=== PATIENT | female | born 1995 | race Two or more races ===

== ENCOUNTER 2024-09-19 16:43 | Emergency (ER) | payer MEDICAID, OTHER ==
[~2024-09-19] VITALS: Ht 157.5 cm; Wt 71.0 kg
--- NOTE | 2024-09-19 17:14 | ED.PDOC ---
History of Present Illness HPI Comments 29 year old female with no past medical history presents to the emergency department with a chief complaint of direct referral onset today (09/19/24). Patient states she was seen at OBGYN, Dr. Weber's office, was told she tested positive as Syphilis, was sent to ED for first dose of Penicillin. She is currently 14 weeks . No other symptoms or modifying factors present at this time. Denies urgency frequency dysuria or hematuria Denies abdominal pain/pelvic pain/nausea vomiting Denies fevers chills night sweats unintentional weight loss Denies vaginal discharge, foul odor Chief Complaint: Abnormal LAB's Time Seen by MD: 16:15 Reviewed Notes: Nurses Notes, Medications, Allergies Information Source: Patient Mode of Arrival: Ambulatory Severity: Moderate Timing: Hours Duration: Since onset Prehospital treatment: None Past Medical History PAST MEDICAL HISTORY: Denies Surgical History: Denies all surgeries RN REHAB History: No Pertinent RN REHAB History Family History Family History: Reviewed,noncontributory to illness, No family hx of Cancer, No family hx of DM, No family hx of Heart aaliyah, No family hx of HTN, No family hx ofKidney aaliyah, No family hx of Liver aaliyah, No family hx of Lung aaliyah, No family hx of Stroke Social History Smoker: Non-Smoker Alcohol: Denies ETOH Use Drugs: Denies Drug Use Lives In: Home All Other Systems: Reviewed and Negative (as per HPI) Physical Exam General Appearance: No Apparent Distress, Normal HEENT: Normal ENT Inspection, Pharynx Normal, TMs Normal Neck: Full Range of Motion, Non-Tender, Normal, Normal Inspection Respiratory: Chest Non-Tender, Lungs Clear, No Accessory Muscle Use, No Respiratory Distress, Normal Breath Sounds Cardiovascular: No Edema, No JVD, No Murmur, No Gallop, Normal Peripheral Pulses, Regular Rate/Rhythm Breast Exam: Deferred Gastrointestinal: No Organomegaly, Non Tender, No Pulsatile Mass, Normal Bowel Sounds, Soft Genitalia: Deferred Pelvic: Deferred Rectal: Deferred Extremities: No calf tenderness, Normal capillary refill, Normal inspection, Normal range of motion, Non-tender, No pedal edema Musculoskeletal : Apperance: Normal Neurologic: Alert, computer hardware engineer II-XII nml as Tested, No Motor Deficits, Normal Affect, Normal Mood, No Sensory Deficits Cerebellar Function: Normal Reflexes: Normal Skin: Dry, Normal Color, Warm Lymphatic: No Adenopathy Was a procedure done? Was a procedure done?: No X-Ray, Labs, Meds, VS Vital Signs Date Time Temp Pulse Resp B/P (MAP) Pulse Ox O2 Delivery O2 Flow Rate FiO2 09/19/24 17:00 98.5 97 16 108/65 (79) 98 98.5 X-Ray, Labs, Meds, VS Comment 29 year old female with no past medical history presents to the emergency department with a chief complaint of direct referral onset today (09/19/24). Patient arrives alert and oriented, ABC's intact, afebrile, vital signs stable, saturating well in room air Patient was given: Penicillin 2,400,00 units IM . Tolerated medications with no adverse reaction. Additional MDM Review of External, Non-ED records: External records reviewed. Discussion with independent historian (EMS, family) history obtained from the patient/parents (if applicable) at bedside Chronic conditions affecting care: None Social determinants of health affecting care: None Consideration of admission (observation or admission): I considered escalation of care to admission for this patient, however given the reassuring workup, the patient is safe for outpatient management. Time of 1ST Reevaluation: 16:45 Reevaluation 1ST: Improved Patient Education/Counseling: Diagnosis, Treatment Family Education/Counseling: No Family Present SEPSIS Sepsis Screen Date sepsis recognized/suspect: Sep 19, 2024 Time Sepsis recognized/suspect: 1699 Recent Procedure: No On Antibiotic Therapy: No Respiratory Rate >20: No Heart Rate >90: Yes Temp<36 C (96.8 F) or >38.3 C: No SBP <90 or MAP <65 mmHG: No New Acute Mental Status Change: No Is the patient on CPAP, BIPAP,: No Vital Signs Date Time Temp Pulse Resp B/P (MAP) Pulse Ox O2 Delivery O2 Flow Rate FiO2 09/19/24 17:00 98.5 97 16 108/65 (79) 98 98.5 Departure 1 Departure Time of Disposition: 17:32 Impression: Primary Impression: Syphilis Disposition: 01 HOME / SELF CARE / HOMELESS Condition: Stable Discharged With: Self Critical Care Note Critical Care Time?: No Stability Stability form required: No Heart Score Heart Score: Heart Score Response (Comments) Value History N/A 0 EKG N/A 0 Age N/A 0 Risk Factors N/A 0 Troponin N/A 0 Total 0 I personally scribed for NICKI THURSTON NP ([email or web address]) on 09/19/24 at 17:14. Electronically submitted by Isa Pedraza ([email or web address]). I personally scribed for NICKI THURSTON NP ([email or web address]) on 09/19/24 at 17:32. Electronically submitted by Isa Pedraza ([email or web address]). NICKI THURSTON NP Sep 19, 2024 17:14
[2024-09-19] MEDS: PENICILLIN G BENZ 1,200,000 UNITS/2 ML SYRG IM ONE (17:15)
[2024-09-19 18:25] VITALS: BP 127/77; PULSE 18; RESP 18; TEMP 98.5; O2SAT 97
== END 2024-09-19 18:46 | disposition home or self-care (01) ==
LOC: ER 16:50
DX: O98.111 Syphilis complicating pregnancy, first trimester (principal); Z3A.13 13 weeks gestation of pregnancy
CPT/HCPCS: 96372; 99283; J0561

== ENCOUNTER 2025-01-30 14:18 | Observation (INO) | payer MEDICAID ==
[~2025-01-30] VITALS: Ht 157.5 cm; Wt 63.5 kg
--- NOTE | 2025-01-30 15:17 | DVH ---
BIOPHYSICAL PROFILE HISTORY: Short Cervix TECHNIQUE: Multiple transabdominal real-time grayscale sonographic images through the gravid uterus of the fetus with duplex Doppler color flow and M-mode spectral analysis FINDINGS: BIOPHYSICAL PROFILE: breathing score: 2 movement score: 2 tone score: 2 Quantitative GRIFFIN score: 2 (GRIFFIN: 12.6 Cm.) Total score: 8/8 The cervix 1.8 cm Single live fetus in cephalic presentation. heart rate 125 beats per minute. Anterior Grade 2 placenta without previa or abruption Single live fetus at 33 weeks 0 days Biophysical profile score 8/8 corresponding to an MINDY of 03/20/2025 IMPRESSION: 1. Biophysical profile score: 8/8.
[2025-01-30] MEDS ORDERED: NIFE10CA52 PO (15:46)
[2025-01-30] MEDS ORDERED: PROG100S VA (15:46)
[2025-01-30] MEDS: NIFEdipine 10 MG CAP PO STA (15:57)
[2025-01-30] MEDS: BETAMETHASONE ACET (30mg/5ml) 5ml Vial 6mg/ml IM STA (15:58)
[2025-01-30] MEDS ORDERED: PROG200C21 PO (16:04)
--- NOTE | 2025-01-30 19:23 | DVHDS2 ---
Physician Discharge Progress N Final Diagnosis: PTL Operations or Procedures: Operations or Procedures S: 30yo IUP@33.0wks presents to OB triage from Dr. Weber's office for PTL. OB hx: PTD at 36wks, C/S O: VSS per RN NST reactive per RN Celestone first dose IM given Procardia 10mg PO given A: 30yo IUP@33.0wks PTL P: D/C home Rx sent for progesterone and procardia per Dr. Weber's order. FKC/PTL/preE precautions reviewed f/u tmrw for second celestone dose Dr. Weber consulted, agrees with POC. Other Interventions Other Interventions [place] [id number] Ph: [phone] DIAGNOSTIC IMAGING Diagnostic Imaging Report : [id number] Signed PATIENT: NIKOLE DOBSON ACCT: [id number] UNIT: [id number] : 1995 LOC: [facility] ROOM / BED: TRIAGE1 / A AGE / SEX: 30 / F ADM STATUS: ADM IN SERVICE ORDERING PHYSICIAN: CECY FREIRE CNM PROCEDURE(s): BPP - BIOPHYSICAL PROFILE REASON: Short Cervix ORDER NUMBER(s): [id number], ACCESSION NUMBER(s): [id number] BIOPHYSICAL PROFILE HISTORY: Short Cervix TECHNIQUE: Multiple transabdominal real-time grayscale sonographic images through the gravid uterus of the fetus with duplex Doppler color flow and M-mode spectral analysis FINDINGS: BIOPHYSICAL PROFILE: breathing score: 2 movement score: 2 tone score: 2 Quantitative GRIFFIN score: 2 (GRIFFIN: 12.6 Cm.) Total score: 8/8 The cervix 1.8 cm Single live fetus in cephalic presentation. heart rate 125 beats per minute. Anterior Grade 2 placenta without previa or abruption Single live fetus at 33 weeks 0 days Biophysical profile score 8/8 corresponding to an MINDY of 03/20/2025 IMPRESSION: 1. Biophysical profile score: 8/8. ATED BY: LAN TORIBIO Jr. DO DICTATED DATE/TIME: 01/30/251514 SIGNED BY: LAN TORIBIO Jr., SIGNED DATE/TIME: 01/30/251514 CC: Condition on Discharge: Stable Disposition: Home Discharge Instructions: Diet: Regular Activity: See Comment Activity comment: pelvic rest Medications: see med list Follow Up Care: Specialist: f/u on 01/31/25 for second celestone Discharge Statement: "Patient was advised to return to the ER or call 911 if any headaches, dizziness, shortness of breath, chest pain, abdominal pain, bleeding, fevers, or worsening of medical condition. Patient was counseled about treatment plan, medications, possible side effects, patientverbalized understanding. All questions were answered to the best of my ability. This discharge took greater then 30 minutes in planning, reviewing documentation, counseling the patient, and discussing with other team members." Visit Coding OBGYN Date of Service: Jan 30, 2025 Billing Provider: CECY FREIRE CNM POWER CHISEL OPERATOR Common Visit Codes: 02486-[id number] OBS CARE (HIGH) POWER CHISEL OPERATOR Procedure Codes: 15887-73- NON-STRESS TEST CECY FREIRE CNM Jan 30, 2025 19:23
[2025-01-31] MEDS ORDERED: PREN-96 PO (16:22)
== END 2025-01-30 16:25 | disposition home or self-care (01) ==
LOC: UNDOADMOB 14:18 → LDRP 14:18 → UNDODISOB 16:25
PROVIDERS: ADMIT Obstetrics & Gynecology; ATTEND Obstetrics & Gynecology
DX: O26.873 Cervical shortening, third trimester (principal); O60.03 Preterm labor without delivery, third trimester; Z3A.33 33 weeks gestation of pregnancy; Z98.890 Other specified postprocedural states
CPT/HCPCS: 36415; 59025; 76819; 81002; 86780; 94760; 96372; G0378; J0702

== ENCOUNTER 2025-01-31 06:32 | Observation (INO) | payer MEDICAID ==
[~2025-01-31] VITALS: Ht 162.6 cm; Wt 82.1 kg
[~2025-01-31 06:32] MED LIST: NIFE10CA52 PO; PROG200C21 PO
[2025-01-31] MEDS: BETAMETHASONE ACET (30mg/5ml) 5ml Vial 6mg/ml IM ONE (16:14)
[2025-01-31] MEDS ORDERED: PREN-96 PO (16:22)
--- NOTE | 2025-01-31 17:20 | DVHDS2 ---
Physician Discharge Progress N Final Diagnosis: second dose of betamethasone Operations or Procedures: Operations or Procedures 30yo IUP@33.1wks, taking progesterone/procardia second dose of betamethasone given NST reactive FKC/PTL/preE precautions reviewed Dr. Weber consulted, agrees with POC. Condition on Discharge: Stable Disposition: Home Discharge Instructions: Diet: Regular Activity: See Comment Activity comment: pelvic rest Medications: see med list Follow Up Care: Specialist: f/u in 1wk Discharge Statement: "Patient was advised to return to the ER or call 911 if any headaches, dizziness, shortness of breath, chest pain, abdominal pain, bleeding, fevers, or worsening of medical condition. Patient was counseled about treatment plan, medications, possible side effects, patientverbalized understanding. All questions were answered to the best of my ability. This discharge took greater then 30 minutes in planning, reviewing documentation, counseling the patient, and discussing with other team members." Visit Coding OBGYN Date of Service: Jan 31, 2025 Billing Provider: CECY FREIRE CNM SALES TEACHER Common Visit Codes: [id number] OBS CARE (HIGH) SALES TEACHER Procedure Codes: 28027-32- NON-STRESS TEST CECY FREIRE CNM Jan 31, 2025 17:20
== END 2025-01-31 16:34 | disposition home or self-care (01) ==
LOC: LDRP 15:12 → UNDOADMOB 15:12 → LDRP 15:18
PROVIDERS: ADMIT Obstetrics & Gynecology; ATTEND Obstetrics & Gynecology
DX: O60.03 Preterm labor without delivery, third trimester (principal); Z3A.33 33 weeks gestation of pregnancy; Z98.890 Other specified postprocedural states
CPT/HCPCS: 59025; 81002; 94760; 96372; G0378

== ENCOUNTER 2025-02-07 06:51 | Observation (INO) | payer MEDICAID ==
[~2025-02-07 06:51] MED LIST changes: +PREN-96 PO
--- NOTE | 2025-02-07 11:45 | DVHDS2 ---
Physician Discharge Progress N Final Diagnosis: ptl,previous cs 34wks Operations or Procedures: Operations or Procedures nst reactive reviwed,sono Condition on Discharge: Good Disposition: Home SNF Discharge Will this Physician continue t: No Discharge Instructions: Diet: Regular Activity: Light activity Medications: na Follow Up Care: Specialist: 1w Discharge Statement: "Patient was advised to return to the ER or call 911 if any headaches, dizziness, shortness of breath, chest pain, abdominal pain, bleeding, fevers, or worsening of medical condition. Patient was counseled about treatment plan, medications, possible side effects, patientverbalized understanding. All questions were answered to the best of my ability. This discharge took greater then 30 minutes in planning, reviewing documentation, counseling the patient, and discussing with other team members." Visit Coding OBGYN Date of Service: Feb 07, 2025 Billing Provider: JOHN DAVILA DO CAFETERIA ATTENDANT Common Visit Codes: [id number] OBS CARE (HIGH) CAFETERIA ATTENDANT Procedure Codes: 00579-70- NON-STRESS TEST JOHN DAVILA DO Feb 07, 2025 11:45
--- NOTE | 2025-02-07 11:57 | DVH ---
BIOPHYSICAL PROFILE HISTORY: Short cervix, PTL TECHNIQUE: Multiple transabdominal real-time grayscale sonographic images through the gravid uterus of the fetus with duplex Doppler color flow and M-mode spectral analysis FINDINGS: BIOPHYSICAL PROFILE: breathing score: 2 movement score: 2 tone score: 2 Quantitative GRIFFIN score: 2 (GRIFFIN: 13 Cm.) Total score: 8 Cervix appears shortened measuring 1.9 cm. Single live fetus in cephalic presentation. heart rate 138 beats per minute. Grade II anterior placenta without previa or abruption IMPRESSION: Biophysical profile score: 8 Cervix appears shortened measuring 1.9 cm.
== END 2025-02-07 12:00 | disposition home or self-care (01) ==
LOC: LDRP 10:40 → UNDOADMOB 10:40 → LDRP 10:52
PROVIDERS: ADMIT Obstetrics & Gynecology; ATTEND Obstetrics & Gynecology
DX: O60.03 Preterm labor without delivery, third trimester (principal); Z3A.34 34 weeks gestation of pregnancy; Z98.890 Other specified postprocedural states
CPT/HCPCS: 59025; 76819; 81002; 94760; A4649; G0378

== ENCOUNTER 2025-02-14 11:55 | Observation (INO) | payer MEDICAID ==
--- NOTE | 2025-02-14 13:13 | DVH ---
BIOPHYSICAL PROFILE HISTORY: Short cervix and hx of labor TECHNIQUE: Multiple transabdominal real-time grayscale sonographic images through the gravid uterus of the fetus with duplex Doppler color flow and M-mode spectral analysis FINDINGS: BIOPHYSICAL PROFILE: breathing score: 2 movement score: 2 tone score: 2 Quantitative GRIFFIN score: 2 (GRIFFIN: 15.8 Cm.) Total score: 8 The cervix is shortened and measures 1.7 cm with trace fluid. Single live fetus in cephalic presentation. heart rate 142 beats per minute. Grade 2 fundal placenta without previa or abruption IMPRESSION: The cervix is shortened and measures 1.7 cm with trace fluid.
[2025-02-14] MEDS ORDERED: NIFE10CA52 PO ×2 (13:40→13:42)
--- NOTE | 2025-02-14 14:51 | DVHDS2 ---
Physician Discharge Progress N Final Diagnosis: ptl,short cx 35wks Operations or Procedures: Operations or Procedures nst reactive reviwed,sono Condition on Discharge: Good Disposition: Home Discharge Instructions: Diet: Regular Activity: Bed rest Medications: na Follow Up Care: Specialist: 3d Discharge Statement: "Patient was advised to return to the ER or call 911 if any headaches, dizziness, shortness of breath, chest pain, abdominal pain, bleeding, fevers, or worsening of medical condition. Patient was counseled about treatment plan, medications, possible side effects, patientverbalized understanding. All questions were answered to the best of my ability. This discharge took greater then 30 minutes in planning, reviewing documentation, counseling the patient, and discussing with other team members." Visit Coding OBGYN Date of Service: Feb 14, 2025 Billing Provider: JOHN DAVILA DO OIL BURNER REPAIRER Common Visit Codes: [id number] OBS CARE (HIGH) OIL BURNER REPAIRER Procedure Codes: 03208-23- NON-STRESS TEST JOHN DAVILA DO Feb 14, 2025 14:51
== END 2025-02-14 13:56 | disposition home or self-care (01) ==
LOC: LDRP 11:55 → UNDOADMOB 11:55 → LDRP 12:06 → UNDODISOB 13:56
PROVIDERS: ADMIT Obstetrics & Gynecology; ATTEND Obstetrics & Gynecology
DX: O60.03 Preterm labor without delivery, third trimester (principal); O26.873 Cervical shortening, third trimester; Z3A.35 35 weeks gestation of pregnancy; Z98.890 Other specified postprocedural states
CPT/HCPCS: 59025; 76817; 76819; 81002; 94760; A4649; G0378

== ENCOUNTER 2025-02-17 03:38 | Observation (INO) | payer MEDICAID ==
--- NOTE | 2025-02-17 09:55 | DVH ---
EXAM: US BIOPHYSICAL PROFILE DATE OF SERVICE: 02/17/2025 09:20 AM ORDERING PHYSICIAN: DANIEL HEARD REASON FOR EXAM: Short cervix, PTL TECHNIQUE: Sonographic images were acquired of the gravid uterus. COMPARISON: US BIOPHYSICAL PROFILE on DOS: 02/14/25, US BIOPHYSICAL PROFILE on DOS: 02/07/25, US BIOPHYSICAL PROFILE on DOS: 01/30/25 FINDINGS: There is a single live intrauterine with a heart rate of 133 beats per minute. The placenta is located anteriorly with no evidence of previa or abruption. The amniotic fluid index is 11.7 cm with an MVP of 4.5 cm. The cervix is shortened, measuring 1.3 cm. There is mild funneling measuring up to 7 mm. There is normal breathing, movement, and tone. The biophysical profile score is 8/8. IMPRESSION: Shortened maternal cervix measuring 1.3 cm with mild funneling.
--- NOTE | 2025-02-17 10:01 | DVHDS2 ---
Physician Discharge Progress N Final Diagnosis: labor 35 wk, short cervical length Previous C/Section Secondary Diagnosis: NOT in labor Operations or Procedures: Operations or Procedures NST/BPP reactive, normal Condition on Discharge: Stable Disposition: Home Discharge Instructions: Diet: Regular Activity: Light activity Activity comment: Pelvic rest, PTL precautions Follow Up/Referral: 2-3 days w/ Dr Weber Medications: Refill Procardia and vaginal progesterone Follow Up Care: Discharge Statement: "Patient was advised to return to the ER or call 911 if any headaches, di zziness, shortness of breath, chest pain, abdominal pain, bleeding, fevers, or worsening of medical condition. Patient was counseled about treatment plan, medications, possible side effects, patientverbalized understanding. All questions were answered to the best of my ability. This discharge took greater then 30 minutes in planning, reviewing documentation, counseling the patient, and discussing with other team members." Visit Coding OBGYN Date of Service: Feb 17, 2025 Billing Provider: DANIEL HEARD DO CONE MARKER Common Visit Codes: 02482-SGO/OBS SAME DATE (HIGH) CONE MARKER Procedure Codes: 68294-92- NON-STRESS TEST DANIEL HEARD DO Feb 17, 2025 10:01
== END 2025-02-17 10:15 | disposition home or self-care (01) ==
LOC: LDRP 09:02
PROVIDERS: ADMIT Obstetrics & Gynecology; ATTEND Obstetrics & Gynecology
DX: O60.03 Preterm labor without delivery, third trimester (principal); Z3A.35 35 weeks gestation of pregnancy; Z98.890 Other specified postprocedural states
CPT/HCPCS: 59025; 76817; 76819; 81002; 94760; A4649; G0378

== ENCOUNTER 2025-02-20 14:50 | Observation (INO) | payer MEDICAID ==
[~2025-02-20] VITALS: Ht 157.5 cm; Wt 79.4 kg
--- NOTE | 2025-02-20 15:53 | DVH ---
BIOPHYSICAL PROFILE HISTORY: short cervix TECHNIQUE: Multiple transabdominal real-time grayscale sonographic images through the gravid uterus of the fetus with duplex Doppler color flow and M-mode spectral analysis FINDINGS: BIOPHYSICAL PROFILE: breathing score: 2 movement score: 2 tone score: 2 Quantitative GRIFFIN score: 2 (GRIFFIN: 10 Cm.) maximum vertical pocket of 5 cm Total score: 8/8 Cervical length of 1.9 cm. Redemonstration of 7 mm mild funneling. Single live fetus in cephalic presentation. heart rate 137 beats per minute. Grade 2 anterior placenta without previa or abruption IMPRESSION: Biophysical profile score: 8 Cervical length of 1.9 cm with mild funneling.
[2025-02-20] MEDS: TERBUTALINE SULFATE 1 MG/ML 1ML VIAL SC SCH (16:42)
--- NOTE | 2025-02-20 22:03 | DVHDS2 ---
Physician Discharge Progress N Final Diagnosis: testing for PTL/short cervix Operations or Procedures: Operations or Procedures 30yo iup@36+wks, pt denies feeling UCs, takes procardia 10mg PO Q4hrs NST reactive toco: UCs present initially, none after 1 dose of terbutaline (per dr. pérez order) VSS FKC/PTL/PreE precautions reviewed Dr. garcia consulted, agrees with poc. Other Interventions Other Interventions [place] [address] Ph: [phone] DIAGNOSTIC IMAGING Diagnostic Imaging Report : [id number] Signed PATIENT: NIKOLE DOBSON ACCT: [id number] UNIT: [id number] : 1995 LOC: [facility] ROOM / BED: [facility] / A AGE / SEX: 30 / F ADM STATUS: ADM IN SERVICE 1455 ORDERING PHYSICIAN: CECY FREIRE CNM PROCEDURE(s): BPP - BIOPHYSICAL PROFILE REASON: short cervix ORDER NUMBER(s): [id number], ACCESSION NUMBER(s): [id number] BIOPHYSICAL PROFILE HISTORY: short cervix TECHNIQUE: Multiple transabdominal real-time grayscale sonographic images through the gravid uterus of the fetus with duplex Doppler color flow and M-mode spectral analysis FINDINGS: BIOPHYSICAL PROFILE: breathing score: 2 movement score: 2 tone score: 2 Quantitative GRIFFIN score: 2 (GRIFFIN: 10 Cm.) maximum vertical pocket of 5 cm Total score: 8/8 Cervical length of 1.9 cm. Redemonstration of 7 mm mild funneling. Single live fetus in cephalic presentation. heart rate 137 beats per minute. Grade 2 anterior placenta without previa or abruption IMPRESSION: Biophysical profile score: 8 Cervical length of 1.9 cm with mild funneling. ATED BY: ARMIDA PEDRAZA DO DICTATED DATE/TIME: 02/20/25 155 SIGNED BY: ARMIDA PEDRAZA DO SIGNED DATE/TIME: 02/20/25 155 CC: Condition on Discharge: Stable Disposition: Home Discharge Instructions: Diet: Regular Activity: See Comment Activity comment: pelvic rest Medications: see med list Follow Up Care: Specialist: f/u in 1wk Discharge Statement: "Patient was advised to return to the ER or call 911 if any headaches, dizziness, shortness of breath, chest pain, abdominal pain, bleeding, fevers, or worsening of medical condition. Patient was counseled about treatment plan, medications, possible side effects, patientverbalized understanding. All questions were answered to the best of my ability. This discharge took greater then 30 minutes in planning, reviewing documentation, counseling the patient, and discussing with other team members." Visit Coding OBGYN Date of Service: Feb 20, 2025 Billing Provider: CECY FREIRE CNM HYDROMETEOROLOGICAL TECHNICIAN Common Visit Codes: [id number] OBS CARE (HIGH) HYDROMETEOROLOGICAL TECHNICIAN Procedure Codes: 83579-57- NON-STRESS TEST CECY FREIRE CNM Feb 20, 2025 22:03
== END 2025-02-20 17:08 | disposition home or self-care (01) ==
LOC: UNDOADMOB 14:50 → LDRP 14:50
PROVIDERS: ADMIT Obstetrics & Gynecology; ATTEND Obstetrics & Gynecology
DX: O26.873 Cervical shortening, third trimester (principal); O60.03 Preterm labor without delivery, third trimester; Z3A.36 36 weeks gestation of pregnancy; Z98.890 Other specified postprocedural states
CPT/HCPCS: 59025; 76817; 76819; 81002; 94760; A4649; G0378; J3105

== ENCOUNTER 2025-02-26 05:44 | Observation (INO) | payer MEDICAID ==
--- NOTE | 2025-02-26 10:20 | DVH ---
BIOPHYSICAL PROFILE HISTORY: short cervix Comparison Study: US BIOPHYSICAL PROFILE on DOS: 02/20/25, US BIOPHYSICAL PROFILE on DOS: 02/17/25, US BIOPHYSICAL PROFILE on DOS: 02/14/25, US BIOPHYSICAL PROFILE on DOS: 02/07/25, US BIOPHYSICAL PROFILE on DOS: 01/30/25 TECHNIQUE: Multiple real-time grayscale sonographic images through the gravid uterus of the fetus with duplex Doppler color flow and M-mode spectral analysis FINDINGS: BIOPHYSICAL PROFILE: breathing score: 2 movement score: 2 tone score: 2 Quantitative GRIFFIN score: 2 (GRIFFIN: 10.7 Cm.) Total score: 8 The cervix measures 1.5 cm, previously 1.9 cm. Single live fetus in cephalic presentation. heart rate 127 beats per minute. Grade 3, anterior placenta without previa or abruption IMPRESSION: Biophysical profile score: 8
--- NOTE | 2025-02-26 11:17 | DVHDS2 ---
Discharge Summary Date of Admission Feb 26, 2025 at 09:05 Date of Discharge: Feb 26, 2025 Admitting Diagnosis Short cervix here for NST BPP rule out labor and/or shortening of cervix. Wounds: None Brief Hx & Hospital Course: Patient is here for NST BPP reassuring no suit significant change in her short cervix length Consults/Reason for consult None Operations or Procedures NST BPP performed reassuring Condition at Discharge: Good Final Diagnosis/Problems List 36-6/7 weeks history of short cervix reassuring heart tones BPP Discharge Disposition: Home Discharge Instruct/Medications Diet: Regular Activity: Light activity Activity comment: Kick counts labor precautions Follow Up/Referral: As scheduled weekly NST BPP or PRN Medications: Resume home meds Scheduled Nifedipine (Procardia Capsule), 10 MG PO Q6HR Nifedipine (Procardia Capsule), 10 MG PO Q4HR, (Reported) Vit W/ Ferrous Fumara ( One Daily), 1 TAB PO DAILY, (Reported) Progesterone Micronized (Progesterone), 200 MG PO HS Miscellaneous Medications Nifedipine (Procardia Capsule), 10 MG PO, (Reported) Discharge Statement: "Patient was advised to return to the ER or call 911 if any headaches, dizziness, shortness of breath, chest pain, abdominal pain, bleeding, fevers, or worsening of medical condition. Patient was counseled about treatment plan, medications, possible side effects, patientverbalized understanding. All questions were answered to the best of my ability. This discharge took greater then 30 minutes in planning, reviewing documentation, counseling the patient, and discussing with other team members." ASSESSMENT ASSESSMENT Assessment Visit Coding OBGYN Date of Service: Feb 26, 2025 Billing Provider: ROSA SUERO DO MANAGER COMMODITIES Common Visit Codes: [id number] INP/OBS CARE(HIGH), 25101-VRS/OBS SAME DATE (LOW), 70741-SGV/OBS SAME DATE (MOD) MANAGER COMMODITIES Procedure Codes: 30064-66- NON-STRESS TEST ROSA SUERO DO Feb 26, 2025 11:17
== END 2025-02-26 10:33 | disposition home or self-care (01) ==
LOC: LDRP 09:05 → UNDOADMOB 09:05 → LDRP 09:11 → UNDODISOB 10:33
PROVIDERS: ADMIT Obstetrics & Gynecology; ATTEND Obstetrics & Gynecology
DX: O26.873 Cervical shortening, third trimester (principal); Z3A.36 36 weeks gestation of pregnancy; Z98.890 Other specified postprocedural states
CPT/HCPCS: 59025; 76817; 76819; 81002; 94760; A4649; G0378

== ENCOUNTER 2025-03-01 08:58 | Inpatient (IN) | payer MEDICAID ==
[2025-03-01] VITALS (11 sets, daily range): BP systolic 105–132; BP diastolic 60–76; PULSE 72–91; RESP 16–19; TEMP 97.5–98.1; O2SAT 96–98
[~2025-03-01] VITALS: Ht 157.5 cm; Wt 85.3 kg
--- NOTE | 2025-03-01 10:13 | DVH ---
BIOPHYSICAL PROFILE HISTORY: short cervix, repeat Comparison Study: US BIOPHYSICAL PROFILE on DOS: 02/26/25, US BIOPHYSICAL PROFILE on DOS: 02/20/25, US BIOPHYSICAL PROFILE on DOS: 02/17/25, US BIOPHYSICAL PROFILE on DOS: 02/14/25, US BIOPHYSICAL PROFILE on DOS: 02/07/25 TECHNIQUE: Multiple real-time grayscale sonographic images through the gravid uterus of the fetus with duplex doppler color flow and M-mode spectral analysis FINDINGS: BIOPHYSICAL PROFILE: breathing score: 2 movement score: 2 tone score: 2 Quantitative GRIFFIN score: 2 (GRIFFIN: 11.4 cm.) Total score: 8 The cervix 0.7 cm Single live fetus in cephalic presentation. heart rate 138 beats per minute. Anterior placenta without previa or abruption Biophysical profile score 8 corresponding to an MINDY of 03/20/25 IMPRESSION: 1. Biophysical profile score: 8
[2025-03-01] MEDS: LACTATED RINGER'S 1,000 ML IV ONE (10:15)
[2025-03-01] MEDS ORDERED: ceFAZolin 1GM/50ML 50 ML IV ONE (10:15)
[2025-03-01] MEDS: SODIUM CITR/CITRIC ACID ORAL SOLN 30 ML PO ONE (10:15)
--- NOTE | 2025-03-01 10:53 | DVHHP ---
ADMIT DATE: 03/01/2025 CHIEF COMPLAINT: Labor, desires repeat section. HISTORY OF PRESENT ILLNESS: The patient is a 30-year-old 2, para 1, with EDC 03/20. Estimated gestational age of 37+ weeks, admitted for labor. The patient started with labor. She received Celestone and progesterone, and she has been on Procardia. The patient had previous section x 1. Her cervix has been shortened from 3 to 1.8 and currently today is 0.4 cm with contractions. Subsequently, the patient will be taken for repeat section. PAST MEDICAL HISTORY: None. PAST SURGICAL HISTORY: . SOCIAL HISTORY: None. FAMILY HISTORY: None. OBSTETRIC AND GYNECOLOGIC HISTORY: One section. REVIEW OF SYSTEMS: Consistent with HPI. PHYSICAL EXAMINATION: VITAL SIGNS: Stable, afebrile. HEENT: Within normal limits. CARDIOVASCULAR: Regular rate and rhythm. LUNGS: Clear to auscultation. BREASTS: Symmetrical, no masses. ABDOMEN: Gravid. Positive heart. PELVIC: Cervix essentially nonexistent, open 1 cm. EXTREMITIES: No clubbing, cyanosis, or edema. IMPRESSION: * Intrauterine at 37+ weeks with labor, in early labor. * Desire to repeat section. PLAN: Repeat section. Informed consent obtained. Risks, complications of surgery including infection, bleeding, hematoma formation, injury to bowel, bladder, surrounding organs, possibility of DVT, pulmonary embolism, risk of anesthesia discussed with the patient. Options reviewed. All questions answered. The patient fully understands. She wishes to proceed with planned procedure. DO CAMILA Chaidez/IVA TID: [id number] RECEIPT: [id number]
[2025-03-01 11:01] LABS: Hematocrit 38.2 % (36.0-46.0); Hemoglobin 13.2 g/dL (12.2-16.2); Mean Corpuscular Hemoglobin 29.8 pg (28.0-32.0); Mean Corpuscular Volume 86.5 fL (80.0-100.0); Nucleated Red Blood Cells % 0.1 %
[2025-03-01 11:01] LABS: Urine Protein, UAD Negative (Negative)
[2025-03-01 11:11] LABS: INR 0.89 (0.9-1.15); Partial Thromboplastin Time 25.1 SEC (24.5-34.5); Prothrombin Time 9.5 sec (9.3-11.8)
[2025-03-01 11:15] LABS: Amphetamine Screen, Urine Neg (NEGATIVE); Barbiturate Scree,Urine Neg (NEGATIVE); Benzodiazephine Screen, Urine Neg (NEGATIVE); Cannabinoid Screen, Urine Neg (NEGATIVE); Cocaine Screen, Urine Neg (NEGATIVE); Opiate Scree,Urine Neg (NEGATIVE); Phencyclidine Screen, Urine Neg (NEGATIVE)
[2025-03-01 11:17] LABS: Albumin 3.9 g/dL (3.2-4.8); Anion Gap 9 (5-15); BUN/Creatinine Ratio 13.7 (10.0-20.0); Calcium 9.4 mg/dL (8.7-10.4); Carbon Dioxide 24 mmol/L (20-31); Chloride 105 mmol/L (98-107); Potassium 3.9 mmol/L (3.5-5.1); Sodium 138 mmol/L (136-145); Total Protein 6.8 g/dL (5.7-8.2)
[2025-03-01 11:18] LABS: Alanine Aminotransferase < 9 U/L (7-40); Alkaline Phosphatase 194 U/L (46-116); Bilirubin, Total 0.4 mg/dL (0.2-1.0); Blood Urea Nitrogen 7 mg/dL (9-23); Glucose 72 mg/dL (74-106)
[2025-03-01] MEDS ORDERED: ONDANSETRON HCL 4 MG/2 ML VIAL ONE (12:33)
[2025-03-01] MEDS ORDERED: MORPHINE SULF PF 5 MG/10 ML VIAL ONE (12:39)
[2025-03-01] MEDS ORDERED: fentaNYL CITRATE 100 MCG/2 ML VL ONE (12:39)
[2025-03-01] MEDS: ceFAZolin 2 GM/D5W50ml 50 ML IV ONE (13:00)
[2025-03-01] MEDS ORDERED: BUPIVACAINE/DEXTROSE MPF 0.75% 2 ML AMP IT ONE (13:01)
--- NOTE | 2025-03-01 13:46 | DVHOP2 ---
Operative Report DATE OF OPERATION:03/01/25 PREOPERATIVE DIAGNOSES: [IUP AT 37+WKS IN LABOR,PREVIOUS CSX1,DESIRES RCS] POSTOPERATIVE DIAGNOSES: [SAME] OPERATION PERFORMED: Repeat Section FINDINGS: [B] infant. Apgars of [8] and [9. Weight [GOOD] crying tone. [CLEAr] amniotic fluid. Placenta and three-vessel were intact. Normal tubes, ovaries, and uterus. Moderate scar tissue. SURGEON: Mallorie Weber D.O. [employer] FARM HAND: solar thermal technician, jagjit. ANESTHESIOLOGIST: Fern ngo ANESTHESIA: [Duramorph spinal, regional]. COMPLICATIONS: [none]. ESTIMATED BLOOD LOSS: [500] mL. BLOOD PRODUCTS USED: [none]. PROCEDURE IN DETAIL: The patient was taken to the operating room, placed in sitting position, and spinal was placed without difficulty. She was then prepped and draped in a sterile fashion. A low Pfannenstiel incision was made scapel. At this point, it was carried down through the rectus fascia, nicked in the midline, and carried laterally. The rectus muscles were in the midline. Peritoneum was identified and entered with sharp dissection. Vesicouterine peritoneum was taken off the lower uterine segment. A lower uterine transverse incision was made with a scalpel down the chorionic membranes, ruptured with hemostat. was in vertex position. One hand was placed in the lower uterine segment. Head was essentially delivered spontaneously. Nose and mouth were bulb suctioned. Shoulders and torso were delivered without difficulty. Again, pharynx, nose, and mouth were re-suctioned with vigorous crying tone. Cord was cut. The infant was handed off to the awaiting Respiratory. At this point, umbilical blood sample was taken. Placenta was removed. Uterus was exteriorized, cleared off all clots and debris, irrigated, and closed with a double layer of 0-Vicryl. The vesicouterine peritoneum was incorporated into this closure. We had complete hemostasis. EBL was [500] mL. The instrument, lap, and sponge count was correct x1. The uterus was placed back into the peritoneum. The peritoneal cavity was re-inspected and the lower uterine incision with good hemostasis. We closed the peritoneum with running continuous of 2-0 Vicryl. The Rectus Fascia was closed with 0-PDS, running continuous, looped-0. The skin was closed undermined, irrigated, and close with karen. CONDITION: The patient's and the infant's condition is stable and but guarded. Visit Coding OBGYN Date of Service: Mar 01, 2025 Billing Provider: MALLORIE WEBER DO SPECIAL PROCEDURES TECHNOLOGIST Common Visit Codes: [id number] OBS CARE (HIGH) SPECIAL PROCEDURES TECHNOLOGIST Procedure Codes: [id number] DELIVERY ONLY MALLORIE WEBER DO Mar 01, 2025 13:46
--- NOTE | 2025-03-01 13:47 | POSTOP ---
Post-Operative Note Post-Operative Note Preop Diagnosis iup at 37+wks in labor ,desires rcs Postop Diagnosis: same Operation performed rcs Specimen baby boy,apgars 8-9 Anesthesia: Regional Anesthesiologist: misael Blood Loss(fluid mgmt) 500ml Surgeon John Weber Disaster Recovery Specialist raysa Implant na Complications & Mgmt none Date 03/01/25 Time 13:46 Visit Coding OBGYN Date of Service: Mar 01, 2025 Billing Provider: JOHN WEBER DO BILINGUAL TEACHER Common Visit Codes: [id number] OBS CARE (HIGH) BILINGUAL TEACHER Procedure Codes: [id number] DELIVERY ONLY JOHN WEBER DO Mar 01, 2025 13:47
[2025-03-01] MEDS ORDERED: HYDROmorphone HCL 2 MG/ML VL/or syr IV PRN ×2 (14:30)
[2025-03-01] MEDS ORDERED: diphenhydrAMINE HCL 50 MG/1 ML VL IV PRN ×2 (14:30)
[2025-03-01] MEDS ORDERED: ONDANSETRON HCL 4 MG/2 ML VIAL IV PRN ×2 (14:30)
[2025-03-01] MEDS: NALBUPHINE HCL 10 MG/1ml INJECTION IV ONE (14:30)
[2025-03-01] MEDS ORDERED: NALOXONE HCL 0.4 MG/ML VIAL IV PRN (14:30)
[2025-03-01] MEDS: LACTATED RINGER'S 1,000 ML IV SCH (15:26)
[2025-03-01] MEDS: ACETAMINOPHEN IV 1000 MG/100ML (10MG/ML) IV PRN (16:29)
[2025-03-01] MEDS: ceFAZolin 1GM/50ML 50 ML IV SCH (21:01)
[2025-03-02] VITALS (18 sets, daily range): BP systolic 99–130; BP diastolic 56–74; PULSE 74–120; RESP 16–17; TEMP 97.6–98.2; O2SAT 95–100
--- NOTE | 2025-03-02 06:15 | DVHPN2 ---
Progress Note Date Seen: Mar 02, 2025 Subjective Montserrat is sitting up in bed with baby swaddled in bassinet at bedside. Patient would like to feed baby at this time, but would like help positioning SUBJECTIVE: -Lochia minimal -Regular diet well tolerated. -Ambulating and voiding well w/o feeling dizzy or lightheaded -Pain relieved with IV medication PRN -Passing flatus but no BM yet. - w/o problem vital signs Vital Sign Date Time Temp Pulse Resp B/P (MAP) Pulse Ox O2 Delivery O2 Flow Rate FiO2 03/02/25 04:58 76 16 98 03/02/25 03:00 98.1 110/64 (79) 98.1 03/01/25 18:30 Room Air 03/01/25 14:10 5.0 03/01/25 14:10 96 Total Intake and Output 03/01/25 03/01/25 03/02/25 15:00 23:00 07:00 Intake Total 100 ml Output Total 1005 ml 450 ml Balance 100 ml -1005 ml -450 ml medications Current Medications Medications Dose Ordered Sig/Elma Route Start Time Stop Time Status Last Admin Dose Admin Lactated Ringer's 1,000 ml @ 125 mls/hr Q8H IV 03/01/25 10:15 03/01/25 20:42 125 MLS/HR Ondansetron HCl 4 mg Q4HP PRN IV 03/01/25 14:30 Cefazolin Sodium 50 ml @ 100 mls/hr Q8H IV 03/01/25 21:00 03/02/25 13:29 03/02/25 05:00 100 MLS/HR Diphenhydramine HCl 25 mg Q4HP PRN IV 03/01/25 14:30 Acetaminophen 1,000 mg Q8HPRN PRN IV 03/01/25 14:30 03/02/25 14:29 03/02/25 00:42 1,000 MG Hydromorphone HCl 1 mg Q4HP PRN IV 03/01/25 14:30 laboratory and microbiology Laboratory Tests 03/01/25 10:32 Test 03/01/25 10:32 Range/Units Serum Glucose 72 L 74-106 mg/dL Objective OBJECTIVE: -A&O x4. No apparent distress. Affect appropriate -Afebrile, VSS -Chest: heart and lung sounds normal. -Breasts: Nipples intact w/o cracks or soreness -Abdomen: normal BS, soft, non-tender, no rebound or guarding, fundus firm @ U- 1, -Lower abdominal incision site with dressing dry and intact. No edema, erythema or induration -Extremities: no edema or tenderness Problems(with codes): (1) S/P section Assessment/Plan ASSESSMENT 30 yo now Post operative & ppd # 1 s/p repeat Section, doing well. Blood Type: A+ Breast feeding Rubella Immune PLAN -Assisted patient with getting baby boy to latch onto L breast in cross cradle position. Reviewed different techniques for latching and positions. Answered all questions. -Continue pain management with IV medications as previously ordered. Will transition to PO medications at 24 hours post op -Increase fluid intake and fiber in diet to promote regular bowel movements, Laxative PRN -Educated patient on self-care -Continue routine care Plan discussed with: Patient Visit Coding OBGYN Date of Service: Mar 02, 2025 Billing Provider: MICHAEL PANG CNM [employer]CO[employer] KILN BURNER Common Visit Codes: [id number] INP/OBS CARE(MOD) MICHAEL PANG CNM Mar 02, 2025 06:15
[2025-03-02] MEDS ORDERED: DOCU-94 PO (07:17)
[2025-03-02] MEDS ORDERED: HYDR-4072 PO (07:17)
[2025-03-02] MEDS ORDERED: IBUP-1456 PO (07:17)
[2025-03-02 09:31] LABS: Hematocrit 32.9 % (36.0-46.0); Hemoglobin 11.4 g/dL (12.2-16.2); Mean Corpuscular Hemoglobin 29.9 pg (28.0-32.0); Mean Corpuscular Volume 86.5 fL (80.0-100.0); Nucleated Red Blood Cells % 0.1 %
[2025-03-02] MEDS: IBUPROFEN 800 MG TAB PO PRN (16:33)
[2025-03-02] MEDS: SIMETHICONE 80 MG CHEWABLE TABLET PO SCH (17:40)
[2025-03-02] MEDS: HYDROcodone-ACET 5/325MG TAB PO PRN (20:23)
[2025-03-02] MEDS: DOCUSATE SOD 100 MG CAP PO SCH (22:09)
--- NOTE | 2025-03-03 01:06 | DVHPN2 ---
Progress Note Date Seen: Mar 03, 2025 Subjective Montserrat is sitting up in bed with baby swaddled and laying in her arms. She states she had a good day and was able to walk/feel more independent SUBJECTIVE: -Lochia minimal -Regular diet well tolerated. -Ambulating and voiding well w/o feeling dizzy or lightheaded -Pain relieved with oral medication PRN -Passing flatus but no BM yet. - w/o problem -Desires and requests to be discharged home today as long as her pain stays adequately controlled (03/03) vital signs Vital Sign Date Time Temp Pulse Resp B/P (MAP) Pulse Ox O2 Delivery O2 Flow Rate FiO2 03/02/25 23:00 97.6 91 16 114/68 (83) 95 97.6 03/02/25 18:50 Room Air 03/01/25 14:10 5.0 03/01/25 14:10 96 Total Intake and Output 03/02/25 03/02/25 03/03/25 15:00 23:00 07:00 Output Total 2150 ml Balance -2150 ml medications Current Medications Medications Dose Ordered Sig/Elma Route Start Time Stop Time Status Last Admin Dose Admin Ondansetron HCl 4 mg Q4HP PRN IV 03/01/25 14:30 Cancel Diphenhydramine HCl 25 mg Q4HP PRN IV 03/01/25 14:30 Cancel Hydromorphone HCl 1 mg Q4HP PRN IV 03/01/25 14:30 Cancel Docusate Sodium 100 mg Q12HR PO 03/02/25 22:00 03/02/25 22:09 100 MG Dimethicone 80 mg QID PO 03/02/25 18:00 03/02/25 22:09 80 MG Ibuprofen 800 mg Q8HP PRN PO 03/02/25 14:15 03/03/25 00:37 800 MG Acetaminophen/ Hydrocodone Bitart 1 tab Q4HPRN PRN PO 03/02/25 14:15 Acetaminophen/ Hydrocodone Bitart 2 tab Q4HPRN PRN PO 03/02/25 14:15 03/02/25 20:23 2 TAB laboratory and microbiology Laboratory Tests 03/02/25 08:55 03/01/25 10:32 Test 03/01/25 10:32 Range/Units Serum Glucose 72 L 74-106 mg/dL Objective OBJECTIVE: -A&O x4. No apparent distress. Affect appropriate -Afebrile, VSS -Chest: heart and lung sounds normal. -Breasts: Nipples intact w/o cracks or soreness -Abdomen: normal BS, soft, non-tender, no rebound or guarding, fundus firm @ U- 1, -Lower abdominal incision site with dressing dry and intact. No edema, erythema or induration -Extremities: no edema or tenderness Problems(with codes): (1) S/P section Assessment/Plan ASSESSMENT 30 yo now Post operative & ppd # 2 s/p repeat Section, doing well. Blood Type: A+ Breast feeding Rubella Immune PLAN -Continue pain management with oral medications as previously ordered. Patient aware of prescriptions sent to preferred pharmacy -Increase fluid intake and fiber in diet to promote regular bowel movements, Laxative PRN -Educated patient on self-care and warning signs to watch for, including PPH, PPD, infection, and pre-eclampsia -Continue routine care and anticipate discharge later in the day Plan discussed with: Patient, Spouse (asleep at bedside) Visit Coding OBGYN Date of Service: Mar 03, 2025 Billing Provider: MICHAEL PANG CNM SURFACE BOSS Common Visit Codes: [id number] INP/OBS CARE(MOD) MCIHAEL PANG CNM Mar 03, 2025 01:06
--- NOTE | 2025-03-03 01:06 | DVHDS2 ---
Obstetrics Discharge Summary Obstetrics Discharge Summary Date of Admission: Mar 01, 2025 Date of Discharge: Mar 03, 2025 Reason For Admission: Onset of Labor, Section (Repeat) Intrapartum Procedures: (Low Cervical Transverse) Discharge Diagnosis: Term -Delivered Discharge Information: Activity (Unrestricted. Advance as tolerated. Balance activities with rest periods. No heavy lifting, pushing or straining. Pelvic rest x 6 weeks), Diet (Routine regular diet rich in fiber, protein, iron and vitamin C with adequate fluid intake.), Medications (see med list), Instructions (Routine), Discharge to (Home), Accompanied by (), Discarge date (03/03/2025) Discharge Care Plan Instructions - self care instructions given - emergency signs and symptoms including but not limited to pre-eclampsia precautions and signs of infection, PPH & of PPD reviewed with patient. -Follow up with OB Provider in 1-2 weeks for incision check (appt on 03/13) and again at 6 weeks Visit Coding OBGYN Date of Service: Mar 03, 2025 Billing Provider: MICHAEL PANG CNM KEY MAKER Common Visit Codes: [id number]-OBG/OBS DISCH DAY >30MIN MICHAEL PANG CNM Mar 03, 2025 01:06
[2025-03-03 02:59] VITALS: BP 110/68; PULSE 77; RESP 17; TEMP 97.9; O2SAT 96
[2025-03-03 07:11] VITALS: BP 119/75; PULSE 89; RESP 17; TEMP 97.9; O2SAT 95
[2025-03-03 10:55] VITALS: BP 114/69; PULSE 91; RESP 17; TEMP 97.9; O2SAT 96
[2025-03-03] MEDS: HYDROcodone-ACET 5/325MG TAB PO PRN (13:56)
[2025-03-03 15:30] VITALS: BP 110/64; PULSE 103; RESP 18; TEMP 97.6; O2SAT 96
== END 2025-03-03 17:19 | disposition home or self-care (01) | DRG 540 ==
LOC: LDRP 08:58 → UNDOADMOB 08:58 → LDRP 09:05 → UNDOADMOB 09:05 → LDRP 10:13 → INTOOBSV 10:13 → OBSVTOIN 10:13 → LDRP 12:19
PROVIDERS: ADMIT Obstetrics & Gynecology; ATTEND Obstetrics & Gynecology
PROC: 10D00Z1 Extraction of Products of Conception, Low, Open Approach (ICD-10-PCS; principal; 2025-03-01 13:08)
DX: O34.211 Maternal care for low transverse scar from previous cesarean delivery (principal); R71.0 Precipitous drop in hematocrit; Z37.0 Single live birth; Z3A.37 37 weeks gestation of pregnancy
CPT/HCPCS: 36415; 59025; 76817; 76819; 80053; 80307; 81001; 81002; 85025; 85610; 85730; 86780; 86850; 86900; 86901; 94760; 94762; 96360; 96361; G0378; J0131; J1100; J2405; J2590